=== PATIENT | female | born 1975 | race Caucasian/White ===

== ENCOUNTER 2025-07-03 17:23 | Emergency (ER) | payer OTHER, SELFPAY ==
[2025-07-03 17:24] VITALS: BP 164/86; PULSE 95; RESP 18; TEMP 36.6; O2SAT 100; BMI 36.0
--- NOTE | 2025-07-03 17:28 | EKG12_ITS ---
Test Reason : CP Blood Pressure : */* mmHG Vent. Rate : 89 BPM Atrial Rate : 89 BPM P-R Int : 130 ms QRS Dur : 80 ms QT Int : 374 ms P-R-T Axes : 61 29 68 degrees QTcB Int : 455 ms Normal sinus rhythm NORMAL LIMITS Confirmed by Mukul Shepherd ([id number]), movie editor ANITA VELASCO ([id number]) on 07/04/2025 10:38:29 AM Referred By: Confirmed By: Mukul Shepherd
--- NOTE | 2025-07-03 17:45 | RAD_ITS ---
PROCEDURE: CHEST PA AND LATERAL 07/03/2025 REASON FOR EXAM: CHEST PAIN TECHNIQUE: Procedure Code: RADCXR Modality: DX Procedure: CHEST PA AND LATERAL COMPARISON: None. FINDINGS: Lungs/Pleura: Clear. No pneumothorax or pleural effusion. Heart/Mediastinum: Within normal limits. Bones/Soft tissues: No significant abnormality. RAD/Chest PA and Lateral IMPRESSION: No acute cardiopulmonary disease. Reading Location: [id number]
[2025-07-03 17:55] VITALS: PULSE 93; RESP 18; O2SAT 100
[2025-07-03 17:58] LABS: Hematocrit 39.5 % (37-47); Hemoglobin 13.0 g/dL (12.0-15.0); Immature Granulocytes Count 0.060 X10^3/uL (0.0-0.0); Mean Corp Hgb Conc 32.9 g/dL (32-36); Mean Corpuscular Volume 92.7 fL (81-99); Mean Platelet Vol. 10.5 fl (6.2-12.0); NRBC Flagged by Analyzer 0 % (0-5); Platelet Count 332 K/mm3 (150-450); RBC Distribution Width CV 11.9 % (11.6-14.6); RBC Distribution Width SD 40.2 fl (35.1-43.9); Red Blood Count 4.26 M/mm3 (4.2-5.4); White Blood Count 11.2 K/mm3 (4.4-11.0)
--- NOTE | 2025-07-03 18:30 | ED.VIS.CHEST ---
HPI History of Present Illness Chief Complaint: Chest Pain Narrative Narrative: Patient is a 50-year-old female presenting to the emergency department for chest pain. Patient has a past medical history of mitral valve prolapse. States that she started to have left-sided stabbing chest pain that she also describes as pressure that started last night. She states it came and went multiple times. She went to bed and this morning woke up and after being up for short period of time developed it again. She denies any radiation of the pain to her back or down her arm. She denies any diaphoresis, nausea, vomiting, abdominal pain. She states that she walked up a flight of stairs today and felt short of breath when she had the chest pain as well. She is taking care of her father who is currently on hospice she states that she is stressed from this. She reports that she has been driving back and forth from [place] where she lives which is about a 9-hour drive over the past 4 to 5 weeks. She denies being on any oral anticoagulation. Denies any history of DVT or PE. Denies any history of hypertension, diabetes, smoking. Denies any family history of sudden cardiac before the age of 50. PFSH PFSH Allergy/AdvReac Type Severity Reaction Status Date / Time butorphanol (From Stadol) Allergy Other Verified 07/03/25 17:28 cefazolin (From Ancef) Allergy PT UNSURE Verified 07/03/25 17:28 OF REACTION erythromycin base (From Allergy Rash Verified 07/03/25 17:28 Erythrocin) latex Allergy Rash Verified 07/03/25 17:28 Social History Smoking Status: Never smoker ROS ROS ED ROS Narrative See HPI EXAM Physical Exam Narrative Exam Narrative: Vital signs: Reviewed General: Alert and orientedx3. No acute distress HEENT: Head is normocephalic and atraumatic, sinuses nontender, pupils equal round and reactive. Nares are patent. Oropharynx and throat exams normal. Neck: Supple without lymphadenopathy nontender Cardiovascular: Regular rate and rhythm, no murmurs. No rubs or gallops. Normal S1 and S2 Respiratory: Clear to auscultation bilaterally. No wheezes, rales, rhonchi Abdominal: Soft and nontender. Normal bowel sounds. No guarding or rebound. Nonsurgical abdomen Extremities: No lower extremity edema noted. No posterior calf tenderness to palpation. No bruising. Normal range of motion. Normal sensation. Skin: No rash or redness. Neurological: Cranial nerves II through XII are grossly intact. Normal strength and sensation. Normal cerebellar function The rest of the physical exam is unremarkable Const Vital Signs: 07/03/25 17:24 07/03/25 17:55 07/03/25 19:13 Temperature 97.8 F Temperature Source Oral Pulse Rate 95 93 89 Respiratory Rate 18 18 18 Blood Pressure 164/86 H 129/94 H Blood Pressure Mean 112 105 Pulse Ox 100 100 98 Oxygen Delivery Method Room Air Room Air 07/03/25 20:00 07/03/25 21:00 07/03/25 21:13 Temperature 97.8 F Temperature Source Pulse Rate 84 85 88 Respiratory Rate 18 18 16 Blood Pressure 160/94 H 141/92 H 141/92 H Blood Pressure Mean 116 108 108 Pulse Ox 97 100 99 Oxygen Delivery Method Room Air Heart Score History: Slightly/Non-Suspicious ECG: Normal Age: >45 - <65 years Risk Factors: 1 or 2 Risk Factors (obesity) Troponin: </= Normal Limit Score: 2 MDM MDM MDM Narrative Medical decision making narrative: Patient is a 50-year-old female presenting to the emergency department for chest pain. Patient was seen and examined. Vitals are stable. Patient resting bed comfortably no acute distress. Patient took 4 baby aspirin prior to arrival. Differential includes but is not limited to: ACS, CHF, pneumonia, PE, musculoskeletal, less likely aortic in nature given history and physical exam. EKG shows normal sinus rhythm with no ischemic changes. No dysrhythmia. CBC with nonspecific mild leukocytosis of 11.2 and a normal hemoglobin. BMP with no significant abnormalities. D-dimer is within normal limits. Troponin and reflex within normal limits and no significant delta change. BNP was within normal limits. Chest x-ray reviewed by myself, no opacities, pneumothorax or wide mediastinum noted. Radiology read in agreement with negative findings. Patient was reevaluated and updated on the findings. Explained that her workup was negative here. She still endorsing intermittent shocks of pain. I explained that there is no signs of emergent cardiac cause of her pain and recommended follow-up with a marketing proposal coordinator and to return if she has any changes. Patient was clearly frustrated stating that she is "still having the symptoms I came in with". I did offer the patient Toradol which she was agreeable to trying. She then expressed concern that it was possibly anxiety related and she was therefore offered Atarax. I discussed with patient at length that her workup was negative however I did recommend that she follow-up with a marketing proposal coordinator for possible stress test and echo outpatient. She states that she had a normal stress test done about 7 years ago. Given her age and history of mitral valve prolapse I did recommend that she have these repeated. Do not think she needs emergent cardiology consultation or admission. Patient discharged from the Emergency Department. I do not feel that the patient's evaluation reveals any acute reason for admission at this time. I instructed them to either follow-up with their primary care physician or promptly return to the Emergency Department for reevaluation should symptoms worsen or new symptoms develop. I explained what symptoms would indicate the need to return to the emergency department. Shared decision making was used. The patient voiced understanding of the treatment plan and is agreeable with it. Clinical impression Chest pain of unclear etiology History & Record Review Discussion w/independent historian: Patient and Family Lab Data Attestation: I reviewed the patient's lab results. Labs: Laboratory Results - last 24 hr 07/03/25 07/03/25 17:40 19:36 WBC 11.2 H RBC 4.26 Hgb 13.0 Hct 39.5 MCV 92.7 MCH 30.5 MCHC 32.9 RDW Std Deviation 40.2 RDW Coeff of Keerthi 11.9 Plt Count 332 MPV 10.5 Immature Gran % (Auto) 0.500 Neut % (Auto) 67.6 Lymph % (Auto) 20.9 Dawson % (Auto) 9.0 Eos % (Auto) 1.6 Baso % (Auto) 0.4 Absolute Neuts (auto) 7.6 Absolute Lymphs (auto) 2.35 Nucleated RBC % 0 D-Dimer Quant (PE/DVT) 0.49 Sodium 140 Potassium 3.9 Chloride 106 Carbon Dioxide 18.0 L Anion Gap 15 BUN 13 Creatinine 1.08 Estim Creat Clear Calc 73.99 Est GFR (MDRD) Non-Af 62 BUN/Creatinine Ratio 11.9 Glucose 87 Calcium 8.3 Troponin T High Sens 6 Troponin T Hi Sens 2 Hr 8 NT pro BNP II 48 Radiography Chest X-Ray - ED: 2 View, Read by ED Physician, Normal, No Acute Disease and No Infiltrates Diagnostic Testing: Clinical Impression(s) from Imaging Studies Chest X-Ray 07/03/25 17:45 IMPRESSION: No acute cardiopulmonary disease. Reading Location: [facility] Discharge Plan Triage Chief Complaint: Chest Pain ED Provider: Joanna Pat Dx/Rx/DC Orders Clinical Impression: Chest pain of uncertain etiology Instructions: ED Chest Pain, Uncertain Cause Primary Care Provider: Sudarshan Talbert Referrals: Mukul Shepherd MD [Med Staff - Active Staff, Cardiology] - As soon as possible NOT,DEFINED [Non-Staff, None] Activity Restrictions/Additional Instructions: Follow-up with a marketing proposal coordinator to soon as possible. Your evaluation in the Emergency Department did not reveal any acute reason for admission. However, I want to emphasize that you may be early in the course of a disease process or illness even if it is not present. For this reason you should follow-up within 24 hours for reevaluation with either your primary care physician or if necessary back here in the Emergency Department. You should return to the Emergency Department immediately if your symptoms worsen or new symptoms develop. Print Language: Frisian Disposition Disposition: Home, Self Care Discharge Date/Time: 07/03/25 22:33
[2025-07-03 18:35] LABS: Anion Gap 15 (5-15); BUN 13 mg/dL (4-19); BUN/Creat Ratio 11.9 RATIO (10-20); Calcium,Total 8.3 mg/dL (7.6-11.0); Carbon Dioxide 18.0 mmol/L (21.0-32.0); Chloride 106 mmol/L (98-108); Estimated Creatinine Clearance 73.99 ml/min (50-250); Glucose 87 mg/dL (70-99); Potassium 3.9 mmol/L (3.3-5.1); Troponin T High Sensitivity 6 ng/L (<=14)
[2025-07-03 19:13] VITALS: BP 129/94; PULSE 89; RESP 18; O2SAT 98
[2025-07-03 19:29] LABS: Pro- Brain NATRIURETIC PEPTIDE 48 pg/mL (<=900)
--- NOTE | 2025-07-03 19:50 | EKG12_ITS ---
Test Reason : REPEAT CP Blood Pressure : */* mmHG Vent. Rate : 83 BPM Atrial Rate : 83 BPM P-R Int : 154 ms QRS Dur : 66 ms QT Int : 362 ms P-R-T Axes : 44 15 33 degrees QTcB Int : 425 ms Normal sinus rhythm Septal infarct , age undetermined Abnormal ECG Confirmed by Mukul Shepherd ([id number]), assignment editor ANITA VELASCO ([id number]) on 07/04/2025 10:30:25 AM Referred By: SELENE Confirmed By: Mukul Shepherd
[2025-07-03 20:00] VITALS: BP 160/94; PULSE 84; RESP 18; O2SAT 97
[2025-07-03 20:15] LABS: D-Dimer Quantitative (DVT/PE) 0.49 FEU/ug/m (0.27-0.49)
[2025-07-03 20:35] LABS: Troponin T High Sens 2 HR 8 ng/L (<=14)
[2025-07-03 21:00] VITALS: BP 141/92; PULSE 85; RESP 18; O2SAT 100
[2025-07-03 21:13] VITALS: BP 141/92; PULSE 88; RESP 16; TEMP 36.6; O2SAT 99
--- NOTE | 2025-07-03 22:08 | ED.RN ---
2111: This RN notified by that the patient is frustrated that the workup today did not show anything and toradol will be ordered for pain management. This RN went into the patient's room to medicate the patient and the patient stated, "so what exactly is this med and how is it supposed to help my chest pain." This RN educated the patient on toradol. This RN assured the patient that the blood work and chest x-ray were reassuring. 2154: This RN went into the patient's room to reassess the patient's toradol and the patient states, "I am in the same amount of pain that I had when I came in here. I don't understand why I am in so much pain because it was hard enough for me to come in here because I am here at a time where my father is dying, so I don't know why my chest is in so much pain when it's not cardiac but yet I am getting shocked because of my mitral valve prolapse so when that flares up it shocks me." This RN notified Dr. Pat of this conversation and hydroxyzine ordered. 2157: This RN went into the patient's room and educated the patient on their hydroxyzine. The patient agreeable to take hydroxyzine at this time. However the patient asked for information regarding each medication. Medication information packet given to the patient at this time. The patient appears very upset about being in pain. This RN educated the patient to follow up with the patient's primary care provider and reassured the patient again that the workup was unremarkable. MD notified.
== END 2025-07-03 22:33 | disposition home or self-care (01) ==
PROVIDERS: Emergency Provider Student in an Organized Health Care Education/Training Program; Visit Provider Student in an Organized Health Care Education/Training Program
DX: R07.9 Chest pain, unspecified (principal)
CPT/HCPCS: 71046; 80048; 83880; 84484; 85025; 85379; 93005; 96374; 99284